=== PATIENT | female | born 1960 | race Caucasian/White ===

== ENCOUNTER 2024-07-04 08:38 | Emergency (ER) | payer MEDICARE, MEDICAID, SELFPAY ==
[2024-07-04] VITALS (8 sets, daily range): BP systolic 133–154; BP diastolic 78–104; PULSE 56–76; RESP 15–21; TEMP 36.8; O2SAT 95–100
--- NOTE | 2024-07-04 08:40 | XRR_ITS ---
PROCEDURE INFORMATION: Exam: XR Chest Exam date and time: 07/04/2024 8:53 AM Age: 63 years old Clinical indication: Pain; Angina pectoris; Additional info: Dyspnea/cough TECHNIQUE: Imaging protocol: Radiologic exam of the chest. Views: 1 view. COMPARISON: No relevant prior studies available. FINDINGS: Lungs: Unremarkable. No consolidation. Pleural spaces: Unremarkable. No pleural effusion. No pneumothorax. Heart/Mediastinum: Unremarkable. No cardiomegaly. Bones/joints: ACDF hardware in the cervical spine. XR/XR chest 1V portable [id number] IMPRESSION: No acute findings.
--- NOTE | 2024-07-04 08:41 | ECG_ITS ---
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 Measurements Intervals [place] Rate: 67 P: 50 [place]: 181 QRS: -20 QRSD: 90 T: 24 QT: 369 QTc: 390 Interpretive Statements SINUS RHYTHM INFERIOR MYOCARDIAL INFARCTION , PROBABLY OLD [40+ ms Q WAVE AND/OR ST/T ABNORMALITY IN II/aVF] No previous ECG available for comparison Electronically Signed On 07-08-2024 18:12:34 LUGGAGE REPAIRER by Chato Garcia M.D. [email or web address]
[2024-07-04 09:16] LABS: Basophils % 0.3 %; Eosinophils % 0.2 %; Hematocrit 40.1 % (36-47); Lymphocytes # 1.5 10^3/uL (0.8-4.8); Lymphocytes % 25.7 %; Mean Corpuscular HGB Conc 32.9 g/dL (30-55); Mean Corpuscular Hemoglobin 29.6 pg (27-33); Mean Corpuscular Volume 89.9 fl (85-98); Mean Platelet Volume 9.9 fL (7.4-10.4); Monocytes # 0.4 10^3/uL (0.2-0.9); Monocytes % 6.5 %; Neutrophils # 3.84 10^3/uL (1.8-7.7); Neutrophils % 67.1 %; Nucleated Red Blood Cells % 0 %; Platelet Count 229 10^3/cmm (157-399); Red Blood Count 4.46 10^6/uL (3.85-5.65); White Blood Count 5.72 10^3/uL (3.29-11.43)
[2024-07-04 09:33] LABS: Troponin(5th) Baseline < 6 ng/L (0-10)
[2024-07-04 09:36] LABS: Alanine Aminotransferase 12 U/L (0-33); Albumin Level 4.6 g/dL (3.5-5.2); Alkaline Phosphatase 66 U/L (35-105); Anion Gap 13.1 (5-19); Aspartate Amino Transferase 15 U/L (0-32); Blood Urea Nitrogen 24 mg/dL (8-23); Calcium 9.2 mg/dL (8.5-10.5); Carbon Dioxide 23 mmol/L (22-29); Chloride 108 mmol/L (98-107); Creatinine Clr Calc Pharmacy 75.3447; Globulin 1.8 g/dL (1.3-4.6); Glomerular Filtration Rate 84.8 mL/min (90-130); Glucose 102 mg/dL (65-115); Osmolality Calculated 294 mOsm/kg (285-295); Potassium 4.1 mmol/L (3.5-5.1); Sodium 140 mmol/L (136-145); Total Bilirubin 0.3 mg/dL (0.15-1.2); Total Protein 6.4 g/dL (6.6-8.7)
--- NOTE | 2024-07-04 09:52 | ED_ITS ---
HPI - Chest Pain 2 General: Chief Complaint: Chest Pain Stated Complaint: chest pain Time Seen by Provider: 07/04/24 08:39 History of Present Illness: 63-year-old female presents to the [facility] room with pain in the left side of her chest this been going on intermittently for nearly a year. She does notice worsening with exertion she states walking up a hill as a example. Usually resolves on its own. She describes shooting pains. No associated shortness of breath or diaphoresis she has been seen for it at [facility] previously workup there was evidently negative she tells me she set up to have a stress test in the near future. She describes the worst of her pain is 7 out of 10 last night she now describes as a 2-3 out of 10. She has not noticed anything at this moment that seems to exacerbate or relieve it. She denies any recent flu fever sweats or chills symptoms. She has no history of PE or arrhythmia. She does report occasionally feeling some palpitations. She has never had an angiogram for this. Associated symptoms: Reports palpitations; Deny abdominal pain, dyspnea or fever(s) Related Data Home Medications ?Medication ?Instructions ?Recorded ?Confirmed alprazolam 0.25 mg tablet 0.25 mg PO TID 07/04/2408/25 hydrochlorothiazide 25 mg tablet 25 mg PO QAM 07/04/24 07/04/24 lisinopril 20 mg tablet 20 mg PO DAILY 07/04/2408/25 ondansetron 4 mg disintegrating 4 mg PO Q6H PRN Nausea And Vomiting 07/04/24 07/04/24 tablet pramipexole 0.125 mg tablet See Rx Instructions .Route .COMPLEX 07/04/24 07/04/24 trazodone 100 mg tablet 100 mg PO QPM PRN Sleep 08/2507/04/24 Allergies Allergy/AdvReac Type Severity Reaction Status Date / Time codeine Allergy Intermediate ADR-Chest Verified 01/11/24 17:02 Pain ketorolac (From Toradol) Allergy Intermediate ADR-Chest Verified 01/11/24 17:02 Pain Penicillins Allergy Intermediate ALGY-Rash Verified 01/11/24 17:02 Review of Systems 2 Const: Denies: fever(s) or chills Card: Reports: chest pain, palpitations and dyspnea on exertion; Denies: edema, swelling of feet/ankles or orthopnea Resp: Denies: dyspnea GI: Denies: abdominal pain : Denies: dysuria, urinary frequency or urinary urgency Musc: Denies: neck pain or back pain Skin/Breast: Denies: rash PFSH ED 2 PFSH: Social History Smoking and tobacco/nicotine status: never used tobacco/nicotine Physical Exam 2 Const: GENERAL APPEARANCE: cooperative ORIENTATION/CONSCIOUSNESS: Yes awake, Yes oriented to person, Yes oriented to place and Yes oriented to time HENMT: COMMON NORMALS: normocephalic, atraumatic and hearing grossly normal bilaterally HEAD & SCALP: normocephalic and atraumatic Resp: COMMON NORMALS: normal respiratory effort, No retractions, No use of accessory muscles and clear to auscultation bilaterally AUSCULTATION: clear to auscultation bilaterally Cardio: COMMON NORMALS: regular rate, regular rhythm and No murmurs present (Cardio) RATE: regular rate RHYTHM: regular rhythm GI: COMMON NORMALS: Soft to palpation and No hepatosplenomegaly present A USCULTATION: Yes normoactive bowel sounds PALPATION: Yes Soft to palpation, No Tenderness to palpation present (GI), No Guarding due to palpation present (GI) and Yes No hepatosplenomegaly present Extremity: COMMON NORMALS: normal to inspection, capillary refill normal, no clubbing, cyanosis or edema, no calf tenderness and no pedal edema Neuro: SENSORIUM/ORIENTATION: Yes oriented to person, Yes oriented to place and Yes oriented to time Skin: COMMON NORMALS: no rashes or lesions noted GENERAL SKIN EXAM: no rashes or lesions noted Course 2 Vital Signs: Vital signs: Vital Signs Temperature 98.2 F 07/04/24 08:52 Pulse Rate 65 07/04/24 15:11 Respiratory Rate 17 07/04/24 13:30 Blood Pressure 136/78 07/04/24 15:11 Pulse Oximetry 95 07/04/24 15:11 Oxygen Delivery Me thod Room Air 07/04/24 08:52 MDM - Chest Pain Medical Decision Making EKG does not show any acute changes reviewed as found on the chart. Cardiac enzymes trending negative both are below 10 with a very slight positive delta but not enough to be significant. CTA of the chest is negative there is a mildly dilated aortic aneurysm but only at 3.5 cm no PE. Will discharge patient home have her follow-up with her primary care doctor. Lab Data 07/04/24 09:06 07/04/24 09:06 Radiology Impressions Chest X-Ray 07/04/24 08:40 IMPRESSION: No acute findings. Chest CTA 07/04/24 12:21 IMPRESSION: 1. No pulmonary embolism. 2. Mildly dilated ascending aorta at 3.5 cm. 3. Mild cardiomegaly. Laboratory Results WBC 5.72 10^3/uL (3.29-11.43) 07/04/24 09:06 RBC 4.46 10^6/uL (3.85-5.65) 07/04/24 09:06 Hgb 13.20 g/dL (11.27-16.99) 07/04/24 09:06 Hct 40.1 % (36-47) 07/04/24 09:06 MCV 89.9 fl (85-98) 07/04/24 09:06 MCH 29.6 pg (27-33) 07/04/24 09:06 MCHC 32.9 g/dL (30-55) 07/04/24 09:06 RDW 12.0 % (12.1-15.1) L 07/04/24 09:06 Plt Count 229 10^3/cmm (157-399) 07/04/24 09:06 MPV 9.9 fL (7.4-10.4) 07/04/24 09:06 Neut % (Auto) 67.1 % 07/04/24 09:06 Lymph % (Auto) 25.7 % 07/04/24 09:06 [place] % (Auto) 6.5 % 07/04/24 09:06 Eos % (Auto) 0.2 % 07/04/24 09:06 Baso % (Auto) 0.3 % 07/04/24 09:06 Neut # (Auto) 3.84 10^3/uL (1.8-7.7) 07/04/24 09:06 Lymph # (Auto) 1.5 10^3/uL (0.8-4.8) 07/04/24 09:06 [place] # (Auto) 0.4 10^3/uL (0.2-0.9) 07/04/24 09:06 Eos # (Auto) 0.0 10^3/uL (0.0-0.8) 07/04/24 09:06 Baso # (Auto) 0.0 10^3/uL (0.0-0.1) 07/04/24 09:06 Nucleated RBC % (auto) 0 % 07/04/24 09:06 Nucleated RBCs # 0.0 /100WBC 07/04/24 09:06 Sodium 140 mmol/L (136-145) 07/04/24 09:06 Potassium 4.1 mmol/L (3.5-5.1) 07/04/24 09:06 Chloride 108 mmol/L (98-107) H 07/04/24 09:06 Carbon Dioxide 23 mmol/L (22-29) 07/04/24 09:06 Anion Gap 13.1 (5-19) 07/04/24 09:06 BUN 24 mg/dL (8-23) H 07/04/24 09:06 Creatinine 0.7 mg/dL (0.5-0.9) 07/04/24 09:06 GFR Calculation 84.8 mL/min (90-130) L 07/04/24 09:06 Glucose 102 mg/dL (65-115) 07/04/24 09:06 Calculated Osmolality 294 mOsm/kg (285-295) 07/04/24 09:06 Calcium 9.2 mg/dL (8.5-10.5) 07/04/24 09:06 Total Bilirubin 0.3 mg/dL (0.15-1.2) 07/04/24 09:06 AST 15 U/L (0-32) 07/04/24 09:06 ALT 12 U/L (0-33) 07/04/24 09:06 Alkaline Phosphatase 66 U/L (35-105) 07/04/24 09:06 Troponin T Baseline < 6 ng/L (0-10) 07/04/24 09:06 Troponin T 120 Minute 8.20 ng/L (0-10) 07/04/24 10:56 Delta Troponin T 2.97584 ABS# (0-10) 07/04/24 10:56 Total Protein 6.4 g/dL (6.6-8.7) L 07/04/24 09:06 Albumin 4.6 g/dL (3.5-5.2) 07/04/24 09:06 Globulin 1.8 g/dL (1.3-4.6) 07/04/24 09:06 Urine Color Yellow (Yellow) 07/04/24 11:03 Urine Appearance Clear (CLEAR) 07/04/24 11:03 Urine pH 5.5 (5-7) 07/04/24 11:03 Ur Specific [place] 1.011 (1.005-1.030) 07/04/24 11:03 Urine Protein Negative (Negative) 07/04/24 11:03 Urine Glucose (UA) Negative (Normal) 07/04/24 11:03 Urine Ketones Negative (Negative) 07/04/24 11:03 Urine Blood Negative (Negative) 07/04/24 11:03 Urine Nitrate Negative (Negative) 07/04/24 11:03 Urine Bilirubin Negative (Negative) 07/04/24 11:03 Urine Urobilinogen 0.2 mg/dL (Negative) 07/04/24 11:03 Ur Leukocyte Esterase Negative (Negative) 07/04/24 11:03 Amorphous Sediment Not Reportable 07/04/24 11:03 All radiology interpretation(s) finalized by discharge Discharge Plan Discharge Patient Disposition: Home Clinical Impression: Atypical chest pain Condition: Stable Prescriptions: No Action lisinopril 20 mg tablet 20 mg PO DAILY trazodone 100 mg tablet 100 mg PO QPM PRN (Reason: Sleep) pramipexole 0.125 mg tablet See Rx Instructions .ROUTE .COMPLEX Rx Instructions: TAKE ONE TABLET BY MOUTH 2 TO 3 HOURS BEFORE BEDTIME FOR RESTLESS LEGS hydrochlorothiazide 25 mg tablet 25 mg PO QAM ondansetron 4 mg tablet,disintegrating 4 mg PO Q6H PRN (Reason: Nausea And Vomiting) alprazolam 0.25 mg tablet 0.25 mg PO TID Discharge Orders: Discharge ED (Routine); Ordered 07/04/24 Ordered By: Dwight Alexandra Referrals: Isabella Flynn, AUTOMOTIVE SERVICE MANAGEMENT TEACHER [Primary Care Provider] - Discharge Diet: Usual diet Discharge Activity: Resume usual activity Patient Instructions: Opioid Safety, Pain Management Activity Restrictions/Additional Instructions: Thank you for choosing [facility] for your healthcare needs today. It is very important that you follow up as instructed or that you return to the Emergency Department should you have concerns or if your condition changes or worsens in any way. You were seen in the emergency room with a complaint of chest pain. Workup in the emergency room did not show signs of acute coronary syndrome. There is no sign of pneumonia at pneumothorax pulmonary embolism or dissecting aneurysm you have a ascending aortic root aneurysm and is 3 and half centimeters with no signs of dissection. At this time it is not likely to be the cause of your chest pain. Suspect it is more pleuritic in nature. Will discharge you home. You had listed allergies to ketorolac which was presents prevents us from giving you anti-inflammatories you would listed allergies to codeine and expressed that you did not want narcotics. Recommend using Tylenol for pain. Print Language: Bolivian Coding Level of Care Code ED Telecommunications Specialist for Zak Joiner
[2024-07-04] MEDS: aspirin 81 mg Chew Tablet 324 MG PO (10:08)
[2024-07-04] MEDS: lidocaine 2% viscous 15 ML, aluminum-mag hydrox-simethicon 30 ML, sucralfate oral liq 1 GM PO (10:12)
--- NOTE | 2024-07-04 10:37 | ECG_ITS ---
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 Measurements Intervals [place] Rate: 57 P: 26 [place]: 148 QRS: -2 QRSD: 93 T: 51 QT: 420 QTc: 409 Interpretive Statements SINUS BRADYCARDIA Compared to ECG 07/04/2024 08:47:54 Sinus rhythm no longer present Myocardial infarct finding no longer present Electronically Signed On 07-08-2024 19:45:33 PARIMUTUEL CASHIER by Chato Garcia M.D. [email or web address]
--- NOTE | 2024-07-04 10:40 | PC.PHAR ---
Patient states she still takes ALprazolam and she still has it .Last fill 07/21/23 90days
[2024-07-04 11:23] LABS: Add Urine Microscopic? NO
[2024-07-04 11:26] LABS: Bilirubin Urine Negative (Negative); Blood Urine Negative (Negative); Glucose Urine UA Negative (Normal); Ketones Urine Negative (Negative); Leukocyte Esterase Urine Negative (Negative); Nitrate Urine Negative (Negative); Protein Urine Negative (Negative); Specific Gravity, Urine 1.011 (1.005-1.030); Urine Appearance Clear (CLEAR); Urine Color Yellow (Yellow); Urobilinogen Urine 0.2 mg/dL (Negative); pH Urine 5.5 (5-7)
[2024-07-04 11:27] LABS: Charge for UA Resulting for Rev
[2024-07-04 11:28] LABS: Troponin 5 2HR Delta 2.20001 ABS# (0-10)
--- NOTE | 2024-07-04 12:21 | CT_ITS ---
WS: [id number] CT CHEST ANGIOGRAPHY WITH REFORMATS HISTORY: Chest pain TECHNIQUE: Contiguous axial images are obtained through the chest during arterial injection of intravenous contrast. Images are reconstructed to evaluate the pulmonary arteries. MIP imaging also reviewed. All CT scans at [facility] use at least one of these dose optimization techniques: automated exposure control; mA and/or kV adjustment per patient size (includes targeted exams where dose is matched to clinical indication); or iterative reconstruction. CONTRAST: Omnipaque 350; 100 mL IV. DLP: 321.18 mGy.cm COMPARISON: None available. Mild dilatation of the ascending aorta with a maximum diameter of 3.5 cm. Normal descending aorta. Mild atherosclerotic plaque. Normal pulmonary arteries. No pulmonary embolism. Lungs are clear. No pneumonia, mass or nodule. No pneumothorax, pericardial or pleural effusions. Mild cardiomegaly. No adenopathy. Entire spleen is not included but it does appear to be enlarged. Liver is enlarged. Gallbladder is not identified and may have been surgically removed. Thoracic hypertrophic osteophytes. CT/CT angio chest PE protcl [id number] IMPRESSION: 1. No pulmonary embolism. 2. Mildly dilated ascending aorta at 3.5 cm. 3. Mild cardiomegaly.
[2024-07-04] MEDS: morphine 4 mg/mL SDV 1 mL IVP (12:42)
[2024-07-04] MEDS: iohexol 350 mg/mL 500 mL Btl (per mL) IV (13:12)
--- NOTE | 2024-07-04 13:32 | PC.NURSE ---
Patient refused a COVID/ flu/ swab because she states she will not be subjected to anything that has to do with COVID.
--- NOTE | 2024-07-04 14:41 | ECG_ITS ---
[facility] Test Date: 2024-07-04 Pat Name: Britany Davenport Department: Room: Gender: Female Orthopedic Radiologic Technologist: : 1960 Requested By: Dwight Pantoja Order Number: [id number] Kathryn MD: Chato Garcia M.D. Measurements Intervals [place] Rate: 53 P: 62 OR: 172 QRS: -3 QRSD: 90 T: 38 QT: 416 QTc: 394 Interpretive Statements SINUS BRADYCARDIA Compared to ECG 07/04/2024 10:37:46 No significant changes Electronically Signed On 07-08-2024 19:45:09 RACK WASHER by Chato Garcia M.D. [id number]
== END 2024-07-04 15:12 | disposition home or self-care (01) ==
PROVIDERS: Emergency Provider Family Medicine; PCP Nurse Practitioner Family
DX: R07.89 Other chest pain (principal)
CPT/HCPCS: 36415; 71045; 71275; 80053; 81003; 84484; 85025; 93005; 96374; 96375; 99285; J2270

== ENCOUNTER → 2024-12-18 10:10 | Outpatient (BNVA) | payer MEDICARE, MEDICAID, SELFPAY | PROVIDERS: PCP Nurse Practitioner Family; Visit Provider Emergency Medicine | DX: R35.0 Frequency of micturition (principal); R53.83 Other fatigue; R07.9 Chest pain, unspecified | CPT/HCPCS: 80053; 80061; 81000; 83880; 84439; 84443; 85025 ==

== ENCOUNTER 2025-02-06 07:52 | Outpatient (CLI) | payer MEDICARE, MEDICAID, SELFPAY ==
--- NOTE | 2025-02-06 07:45 | USCV_ITS ---
Issac Britany Age: 64 Gender: F : 1960 Exam Date: 02/06/2025 08:13 Ordering Phys: Wilmer Huitron MD Technologist: [place] [facility] [place]: cp sob BP: 140 / 80 HR: 68 Rhythm: Sinus Technical Quality: Adequate MEASUREMENTS (Male / Female) Normal Values 2D ECHO LV Diastolic Diameter PLAX 4.5 cm 4.2 - 5.9 / 3.9 - 5.3 cm IVS Diastolic Thickness 1.1 cm 0.6 - 1.0 / 0.6 - 0.9 cm IVS Systolic Thickness 1.2 cm LVPW Diastolic Thickness 1.2 cm 0.6 - 1.0 / 0.6 - 0.9 cm LVPW Systolic Thickness 1.3 cm LVOT Diameter 2.1 cm LV Ejection Fraction 2D Teich 68.0 % LV Ejection Fraction MOD 4C 77.1 % LV Ejection Fraction MOD 2C 69.0 % LV Ejection Fraction 2C AL 70.3 % LA Diameter 3.4 cm RA Systolic Volume 4C AL 40.5 ml RA Systolic Volume 4C MOD 40.4 ml LA Sys Volume AL 53.1 cm cubed LA Sys Volume Index AL 28.4 cm cubed/m squared Aorta at Sinotubular Diameter 2.6 cm IVC Diameter 2.0 cm M-MODE LA Ao Ratio MM 1.3 AV Cusp Separation MM 2.0 cm DOPPLER AV Peak Velocity 134.0 cm/s LVOT Peak Velocity 111.0 cm/s AV Area Cont Eq vti 3.3 cm squared AV Area Cont Eq pk 2.8 cm squared MV Peak Velocity 128.0 cm/s MV Area PHT 5.4 cm squared Mitral E to A Ratio 0.9 TR Peak Velocity 195.0 cm/s TR Peak Gradient 15.2 mmHg TV Peak E Velocity 90.0 cm/s PV Peak Velocity 88.0 cm/s FINDINGS Left Ventricle Normal left ventricular size, systolic function and wall thickness, with no regional wall motion abnormalities. Left ventricular ejection fraction is estimated at 60 %. Grade I/IV diastolic dysfunction (abnormal relaxation filling pattern), normal to mildly elevated filling pressures. Right Ventricle Normal right ventricular size and systolic function. Right Atrium Normal right atrial size. Left Atrium Normal left atrial size. IA Septum Normal appearance of the interatrial septum. Mitral Valve Mildly thickened mitral valve. No mitral valve stenosis. Mild mitral valve regurgitation. Aortic Valve Normal aortic valve structure. No aortic valve stenosis, Trace regurgitation. Tricuspid Valve Normal tricuspid valve structure. No tricuspid valve stenosis or regurgitation. Normal pulmonary pressure. Pulmonic Valve Normal pulmonic valve structure. No pulmonic valve stenosis or regurgitation. Pericardium No pericardial effusion. Aorta Normal diameter of the aortic root and ascending thoracic aorta. IVC Normal IVC diameter. CONCLUSIONS Normal left ventricular size, systolic function and wall thickness, with no regional wall motion abnormalities. Left ventricular ejection fraction is estimated at 60 %. Grade I/IV diastolic dysfunction (abnormal relaxation filling pattern), normal to mildly elevated filling pressures. Normal aortic valve structure. No aortic valve stenosis, Trace regurgitation. Mildly thickened mitral valve. No mitral valve stenosis. Mild mitral valve regurgitation. There is no pericardial effusion. Right atrial pressure is around 5 mm of mercury. Raghav Ariza MD (Electronically Signed) Final Date: 06 February 2025 14:16 S
== END 2025-02-06 07:53 | disposition home or self-care (01) ==
LOC: RAD 07:55
PROVIDERS: PCP Family Medicine; Visit Provider Family Medicine
DX: I25.10 Atherosclerotic heart disease of native coronary artery without angina pectoris (principal); R07.9 Chest pain, unspecified; R06.02 Shortness of breath; I50.30 Unspecified diastolic (congestive) heart failure; I34.9 Nonrheumatic mitral valve disorder, unspecified; I34.0 Nonrheumatic mitral (valve) insufficiency
CPT/HCPCS: 93306

== ENCOUNTER 2025-03-16 09:12 | Emergency (ER) | payer MEDICARE, MEDICAID, SELFPAY ==
[2025-03-16 09:16] VITALS: BP 166/94; PULSE 78; RESP 17; TEMP 36.4; O2SAT 100; BMI 32.9
--- NOTE | 2025-03-16 09:33 | W.ED.BACK ---
HPI - Back Pain/Injury General: Chief Complaint: Back Pain/Injury Stated Complaint: lower back pain Time Seen by Provider: 03/16/25 09:16 History of Present Illness: 64-year-old female with a history of chronic low back pain presents worsening back pain overnight does not recall anything specific that seem to trigger it she has not noticed anything besides movement that worsens that she denies dysuria urgency or frequency. No vomiting no diarrhea. No fecal incontinence urinary retention or saddle paresthesias. Does have a known history of long-term memory impairment. Associated symptoms: Deny abdominal pain, chills, dysuria, fever(s) or urinary urgency Related Data Home Medications ?Medication ?Instructions ?Recorded ?Confirmed dicyclomine 10 mg capsule 10 mg PO QID 03/09/25 03/20/25 gabapentin 300 mg capsule 300 mg PO TID 03/09/25 03/20/25 mecobalamin (vitamin B12) 1,000 1,000 mcg PO DAILY 03/16/25 03/20/25 mcg chewable tablet (B12 Active) omeprazole 40 mg capsule,delayed 40 mg PO DAILY 03/16/25 03/20/25 release Previous Rx's ?Medication ?Instructions ?Recorded alprazolam 0.25 mg tablet 0.25 mg PO TID PRN anxiety #60 tabs 01/05/25 hydrochlorothiazide 25 mg tablet 25 mg PO QAM #90 tabs 01/05/25 lisinopril 40 mg tablet 40 mg PO DAILY #30 tabs 01/05/25 pramipexole 0.125 mg tablet See Rx Instructions .Route 01/05/25 .COMPLEX #90 tabs trazodone 100 mg tablet 100 mg PO QPM PRN Sleep #90 tabs 01/05/25 cyclobenzaprine 10 mg tablet 10 mg PO TID PRN muscle spasm #90 03/09/25 tabs escitalopram oxalate 20 mg tablet 20 mg PO DAILY #30 tabs 03/09/25 methylprednisolone 4 mg tablets in See Rx Instructions PO .COMPLEX 03/16/25 a dose pack (Medrol (Dao)) #21 ea tizanidine 4 mg tablet 2 mg (1/2 x 4 mg) PO Q6H PRN 03/16/25 muscle spasticity #20 tabs Allergies Allergy/AdvReac Type Severity Reaction Status Date / Time codeine Allergy Intermediate ADR-Chest Verified 03/20/25 09:53 Pain ketorolac (From Toradol) Allergy Intermediate ADR-Chest Verified 03/20/25 09:53 Pain Penicillins Allergy Intermediate ALGY-Rash Verified 03/20/25 09:53 Review of Systems Const: Denies: fever(s) or chills Card: Denies: chest pain Resp: Denies: dyspnea GI: Denies: abdominal pain : Denies: dysuria, urinary frequency or urinary urgency Musc: Denies: neck pain or back pain Skin/Breast: Denies: rash PFSH ED PFSH: Medical History Long-term memory impairment Migraine Chronic back pain Chronic neck pain CAD (coronary artery disease) Obesity (BMI 30.0-34.9) Anxiety Restless leg syndrome Moderate episode of recurrent major depressive disorder Hypertension Surgical History H/O: hysterectomy Hx of tonsillectomy Hx of cholecystectomy Family History Grandfather Small cell B-cell lymphoma Father Lung cancer Colon cancer Mother Lung cancer Social History Smoking and tobacco/nicotine status: never used tobacco/nicotine Alcohol intake: never Substance/Drug Use: never Physical Exam Const: COMMON NORMALS: no acute distress GENERAL APPEARANCE: cooperative and comfortable ORIENTATION/CONSCIOUSNESS: Yes awake, Yes oriented to person, Yes oriented to place and Yes oriented to time HENMT: COMMON NORMALS: normocephalic, atraumatic and hearing grossly normal bilaterally HEAD & SCALP: normocephalic and atraumatic Resp: COMMON NORMALS: normal respiratory effort, No retractions, No use of accessory muscles and clear to auscultation bilaterally AUSCULTATION: clear to auscultation bilaterally Cardio: COMMON NORMALS: regular rate, regular rhythm and No murmurs present (Cardio) RATE: regular rate RHYTHM: regular rhythm GI: COMMON NORMALS: Soft to palpation and No hepatosplenomegaly present AUSCULTATION: Yes normoactive bowel sounds PALPATION: Yes Soft to palpation, No Tenderness to palpation present (GI), No Guarding due to palpation present (GI) and Yes No hepatosplenomegaly present Extremity: COMMON NORMALS: normal to inspection, capillary refill normal, no clubbing, cyanosis or edema, no calf tenderness and no pedal edema Neuro: SENSORIUM/ORIENTATION: Yes oriented to person, Yes oriented to place and Yes oriented to time Skin: COMMON NORMALS: no rashes or lesions noted GENERAL SKIN EXAM: no rashes or lesions noted Course Vital Signs: Vital signs: Vital Signs Temperature 97.5 F L 03/16/25 09:16 Pulse Rate 67 03/16/25 12:32 Respiratory Rate 20 H 03/16/25 11:15 Blood Pressure 163/98 03/16/25 12:32 Pulse Oximetry 98 03/16/25 12:32 Oxygen Delivery Me thod Room Air 03/16/25 09:16 MDM - Back Pain/Injury Medical Decision Making Patient is complaining of fluid in her abdomen her abdominal exam is benign white count normal. Chemistry panel was also normal there is no fluid wave on exam and her abdomen she has good bowel sounds no signs of any acute abdomen. Urine was also negative her back is improved. Suspect musculoskeletal low back pain will discharge patient home methylprednisolone and low-dose tizanidine to follow-up with her primary care doctor. Labs 03/16/25 09:57 03/16/25 09:57 Laboratory Results WBC 5.30 10^3/uL (3.29-11.43) 03/16/25 09:57 RBC 4.51 10^6/uL (3.85-5.65) 03/16/25 09:57 Hgb 13.50 g/dL (11.27-16.99) 03/16/25 09:57 Hct 39.9 % (36-47) 03/16/25 09:57 MCV 88.5 fl (85-98) 03/16/25 09:57 MCH 29.9 pg (27-33) 03/16/25 09:57 MCHC 33.8 g/dL (30-55) 03/16/25 09:57 RDW 12.3 % (12.1-15.1) 03/16/25 09:57 Plt Count 227 10^3/cmm (157-399) 03/16/25 09:57 MPV 9.8 fL (7.4-10.4) 03/16/25 09:57 Neut % (Auto) 61.2 % 03/16/25 09:57 Lymph % (Auto) 30.2 % 03/16/25 09:57 [place]ink % (Auto) 7.4 % 03/16/25 09:57 Eos % (Auto) 0.8 % 03/16/25 09:57 Baso % (Auto) 0.2 % 03/16/25 09:57 Neut # (Auto) 3.25 10^3/uL (1.8-7.7) 03/16/25 09:57 Lymph # (Auto) 1.6 10^3/uL (0.8-4.8) 03/16/25 09:57 [place]ink # (Auto) 0.4 10^3/uL (0.2-0.9) 03/16/25 09:57 Eos # (Auto) 0.0 10^3/uL (0.0-0.8) 03/16/25 09:57 Baso # (Auto) 0.0 10^3/uL (0.0-0.1) 03/16/25 09:57 Nucleated RBC % (auto) 0 % 03/16/25 09:57 Nucleated RBCs # 0.0 /100WBC 03/16/25 09:57 Sodium 138 mmol/L (136-145) 03/16/25 09:57 Potassium 4.5 mmol/L (3.5-5.1) 03/16/25 09:57 Chloride 105 mmol/L (98-107) 03/16/25 09:57 Carbon Dioxide 21 mmol/L (22-29) L 03/16/25 09:57 Anion Gap 16.5 (5-19) 03/16/25 09:57 BUN 14 mg/dL (8-23) 03/16/25 09:57 Creatinine 0.7 mg/dL (0.5-0.9) 03/16/25 09:57 GFR Calculation 84.5 mL/min (90-130) L 03/16/25 09:57 Glucose 96 mg/dL (65-115) 03/16/25 09:57 Calculated Osmolality 286 mOsm/kg (285-295) 03/16/25 09:57 Calcium 9.4 mg/dL (8.5-10.5) 03/16/25 09:57 Total Bilirubin 0.3 mg/dL (0.15-1.2) 03/16/25 09:57 AST 25 U/L (0-32) 03/16/25 09:57 ALT 31 U/L (0-33) 03/16/25 09:57 Alkaline Phosphatase 77 U/L (35-105) 03/16/25 09:57 Total Protein 6.8 g/dL (6.6-8.7) 03/16/25 09:57 Albumin 4.4 g/dL (3.5-5.2) 03/16/25 09:57 Globulin 2.4 g/dL (1.3-4.6) 03/16/25 09:57 Lipase 42 U/L (13-60) 03/16/25 09:57 Urine Color Yellow (Yellow) 03/16/25 10:07 Urine Appearance Clear (CLEAR) 03/16/25 10:07 Urine pH 6.0 (5-7) 03/16/25 10:07 Ur Specific [place] 1.013 (1.005-1.030) 03/16/25 10:07 Urine Protein Negative (Negative) 03/16/25 10:07 Urine Glucose (UA) Negative (Normal) 03/16/25 10:07 Urine Ketones Negative (Negative) 03/16/25 10:07 Urine Blood Negative (Negative) 03/16/25 10:07 Urine Nitrate Negative (Negative) 03/16/25 10:07 Urine Bilirubin Negative (Negative) 03/16/25 10:07 Urine Urobilinogen 0.2 mg/dL (Negative) 03/16/25 10:07 Ur Leukocyte Esterase Negative (Negative) 03/16/25 10:07 Urine RBC 0-2 /hpf (0-2) 03/16/25 10:07 Urine WBC 0-5 /hpf (0-5) 03/16/25 10:07 Ur Squamous Epith Cells 0-5 /hpf (0-5) 03/16/25 10:07 Amorphous Sediment Not Reportable 03/16/25 10:07 Urine Bacteria None seen /hpf (NONE) 03/16/25 10:07 Hyaline Casts 0-4 /lpf H 03/16/25 10:07 No radiology studies performed this visit Discharge Plan Discharge Patient Disposition: Home Clinical Impression: Strain of lumbar region Condition: Stable Prescriptions: New tizanidine 4 mg tablet 2 mg PO Q6H PRN (Reason: muscle spasticity) Qty: 20 0RF Rx Instructions: do not exceed 3 doses per 24 hrs methylprednisolone [Medrol (Dao)] 4 mg tablets,dose pack See Rx Instructions .ROUTE .COMPLEX Qty: 21 0RF Rx Instructions: orally per package directions No Action alprazolam 0.25 mg tablet 0.25 mg PO TID PRN (Reason: anxiety) Qty: 60 0RF hydrochlorothiazide 25 mg tablet 25 mg PO QAM Qty: 90 1RF lisinopril 40 mg tablet 40 mg PO DAILY Qty: 30 1RF pramipexole 0.125 mg tablet See Rx Instructions .ROUTE .COMPLEX Qty: 90 1RF Rx Instructions: TAKE ONE TABLET BY MOUTH 2 TO 3 HOURS BEFORE BEDTIME FOR RESTLESS LEGS trazodone 100 mg tablet 100 mg PO QPM PRN (Reason: Sleep) Qty: 90 1RF gabapentin 300 mg capsule 300 mg PO TID dicyclomine 10 mg capsule 10 mg PO QID cyclobenzaprine 10 mg tablet 10 mg PO TID PRN (Reason: muscle spasm) Qty: 90 0RF escitalopram oxalate 20 mg tablet 20 mg PO DAILY Qty: 30 1RF omeprazole 40 mg capsule,delayed release(DR/EC) 40 mg PO DAILY mecobalamin (vitamin B12) [B12 Active] 1,000 mcg Tablet,Chewable 1,000 mcg PO DAILY Discharge Orders: Discharge ED (Routine); Ordered 03/16/25 Ordered By: Dwight Alexandra Referrals: Wilmer Huitron MD [Primary Care Provider, Family Practice] Discharge Diet: Usual diet Discharge Activity: Increase activity as tolerated Patient Instructions: Opioid Safety, Pain Management, Patient Portal & Amalia Instructions Activity Restrictions/Additional Instructions: Thank you for choosing [facility] for your healthcare needs today. It is very important that you follow up as instructed or that you return to the Emergency Department should you have concerns or if your condition changes or worsens in any way. Emergency department visits are focused on emergent conditions, in some cases you may require further evaluation on an outpatient basis. You were seen in the emergency room with complaints of back pain. Your abdominal exam was benign your laboratory test were negative. Your history and exam is suggestive of musculoskeletal low back pain. You are given a steroid taper tizanidine to use as a muscle relaxer, you can use Tylenol and ibuprofen along with this. You should follow-up with Dr. Huitron you describes some changes in your stool and you may benefit from a repeat colonoscopy. (Please note that included in your discharge packet is information concerning opioid safety and pain management. This information is given to all patients were discharged from the ER regardless of their discharge diagnosis or the medicines they usually take or are prescribed.) Print Language: Turkmen Coding Level of Care Code ED Cad Design Engineer for Zak Joiner
[2025-03-16] MEDS: methylPREDNISolone sod succ 125 mg/2 mL INJ IVP (10:12)
[2025-03-16] MEDS: diphenhydrAMINE 50 mg/mL SDV 1mL IVP (10:13)
[2025-03-16 10:16] LABS: Glucose Urine UA Negative (Normal); Nitrate Urine Negative (Negative); Specific Gravity, Urine 1.013 (1.005-1.030)
[2025-03-16 10:20] LABS: Add Urine Microscopic? YES
[2025-03-16 10:23] LABS: Hematocrit 39.9 % (36-47); Hemoglobin 13.50 g/dL (11.27-16.99); Mean Corpuscular HGB Conc 33.8 g/dL (30-55); Mean Corpuscular Hemoglobin 29.9 pg (27-33); Mean Corpuscular Volume 88.5 fl (85-98); Nucleated Red Blood Cells % 0 %; Platelet Count 227 10^3/cmm (157-399); Red Blood Count 4.51 10^6/uL (3.85-5.65); White Blood Count 5.30 10^3/uL (3.29-11.43)
[2025-03-16 10:46] LABS: Alanine Aminotransferase 31 U/L (0-33); Albumin Level 4.4 g/dL (3.5-5.2); Alkaline Phosphatase 77 U/L (35-105); Anion Gap 16.5 (5-19); Aspartate Amino Transferase 25 U/L (0-32); Blood Urea Nitrogen 14 mg/dL (8-23); Calcium 9.4 mg/dL (8.5-10.5); Carbon Dioxide 21 mmol/L (22-29); Chloride 105 mmol/L (98-107); Creatinine Clr Calc Pharmacy 81.4473; Globulin 2.4 g/dL (1.3-4.6); Glucose 96 mg/dL (65-115); Lipase 42 U/L (13-60); Osmolality Calculated 286 mOsm/kg (285-295); Potassium 4.5 mmol/L (3.5-5.1); Sodium 138 mmol/L (136-145); Total Protein 6.8 g/dL (6.6-8.7)
[2025-03-16 10:57] VITALS: BP 166/98; PULSE 58; O2SAT 100
[2025-03-16 11:00] VITALS: BP 153/77; PULSE 62; O2SAT 100
[2025-03-16 11:15] VITALS: RESP 20; O2SAT 100
[2025-03-16] MEDS: morphine 4 mg/mL SDV 1 mL IVP (11:15)
[2025-03-16] MEDS: ondansetron 2 mg/ML SDV 2 mL 4 MG IVP (11:15)
[2025-03-16 12:32] VITALS: BP 163/98; PULSE 67; O2SAT 98
== END 2025-03-16 12:33 | disposition home or self-care (01) ==
PROVIDERS: Emergency Provider Family Medicine; PCP Family Medicine
DX: S39.012A Strain of muscle, fascia and tendon of lower back, initial encounter (principal); I25.10 Atherosclerotic heart disease of native coronary artery without angina pectoris; I10 Essential (primary) hypertension; X58.XXXA Exposure to other specified factors, initial encounter
CPT/HCPCS: 80053; 81001; 83690; 85025; 96374; 96375; 99284; J1200; J2270; J2405; J2919

== ENCOUNTER → 2025-03-20 09:45 | Outpatient (BNVA) | payer MEDICARE, MEDICAID, SELFPAY | PROVIDERS: PCP Family Medicine; Referring Provider Family Medicine; Visit Provider Anesthesiology Pain Medicine | DX: M47.816 Spondylosis without myelopathy or radiculopathy, lumbar region (principal); G89.29 Other chronic pain | CPT/HCPCS: 99204 ==

== ENCOUNTER → 2025-04-04 11:25 | Outpatient (BNVA) | payer MEDICARE, MEDICAID, SELFPAY | PROVIDERS: PCP Family Medicine; Visit Provider Anesthesiology Pain Medicine | DX: M79.18 Myalgia, other site (principal); M47.816 Spondylosis without myelopathy or radiculopathy, lumbar region; G89.29 Other chronic pain | CPT/HCPCS: 20553; 99214; J1010; J3490 ==